=== PATIENT | male | born 1995 | race Hispanic/Latino ===

== ENCOUNTER 2017-11-27 09:54 | Emergency (ER) | payer SELFPAY ==
[~2017-11-27 09:54] MED LIST: IBUP200C76 PO
[2017-11-27] MEDS ORDERED: ACETAMINOPHEN 325 MG TAB ONE (10:21)
== END 2017-11-27 11:20 | disposition home or self-care (01) ==
LOC: EDH 09:54
DX: J10.1 Influenza due to other identified influenza virus with other respiratory manifestations (principal); J45.909 Unspecified asthma, uncomplicated; Z98.890 Other specified postprocedural states
CPT/HCPCS: 71045; 87804; 93005

== ENCOUNTER 2017-12-03 23:29 | Emergency (ER) | payer SELFPAY ==
[2017-12-04] MEDS ORDERED: KETOROLAC TROMETHAMINE 60 MG/2 ML VIAL ONE (00:52)
[2017-12-04] MEDS ORDERED: DEXAMETHASONE SOD PHOSPHATE 10MG/ML 1ML VIAL ONE (00:52)
[2017-12-04] MEDS ORDERED: ACETAMINOPHEN EXTRA STRENGTH 500 MG TABLET ONE (00:53)
== END 2017-12-04 01:48 | disposition home or self-care (01) ==
LOC: EDH 23:29
DX: J10.1 Influenza due to other identified influenza virus with other respiratory manifestations (principal); J45.909 Unspecified asthma, uncomplicated
CPT/HCPCS: 71046; 96372 ×2; 99284; J1100; J1885

== ENCOUNTER 2018-08-17 19:42 | Emergency (ER) | payer OTHER ==
[~2018-08-17 19:42] MED LIST changes: +IBUP-2482 PO; -IBUP200C76 PO
[2018-08-17] MEDS ORDERED: EPINEPHRINE 1 MG/ML AMPULE ONE (19:57)
[2018-08-17] MEDS ORDERED: SODIUM CHLORIDE 0.9% 1000ML 1,000 ML IV ONE (19:59)
[2018-08-17] MEDS ORDERED: DiphenhydrAMINE HCL 50 MG/ML VIAL ONE (19:59)
[2018-08-17] MEDS ORDERED: METHYLPREDNISOLONE SOD SUCC 125MG/2ML VIAL ONE (19:59)
[2018-08-17] MEDS ORDERED: FAMOTIDINE/PF 20 MG/2 ML VIAL IV ONE (20:00)
[2018-08-17 20:42] LABS: BASOPHILS % (AUTO) 0.3 % (0.0-5.0); EOSINOPHILS % (AUTO) 1.6 % (0.0-8.0); HEMATOCRIT 45.5 % (42-54); MEAN CORPUSCULAR HEMOGLOBIN 31.3 pg (27.0-33.0); MEAN CORPUSCULAR HGB CONC 34.4 g/dL (32.0-36.0); MEAN CORPUSCULAR VOLUME 90.9 fL (80-100); MONOCYTES % (AUTO) 9.3 % (3.0-13.0); NEUTROPHILS % (AUTO) 51.8 % (40.0-77.0); PLATELET COUNT (AUTO) 359 K/uL (130-400); RED CELL DISTRIBUTION WIDTH 14.2 % (11.0-15.5)
[2018-08-17 21:02] LABS: CREATININE 1.1 mg/dL (0.5-1.5); POTASSIUM 3.9 mmol/L (3.5-5.1)
== END 2018-08-17 23:03 | disposition home or self-care (01) ==
LOC: EDH 19:42
DX: T78.2XXA Anaphylactic shock, unspecified, initial encounter (principal); T78.40XA Allergy, unspecified, initial encounter; J45.909 Unspecified asthma, uncomplicated; Z98.890 Other specified postprocedural states; X58.XXXA Exposure to other specified factors, initial encounter
CPT/HCPCS: 36415; 80048; 85025; 96372; 96374; 96375; 99285; J0171; J1200; J2930; J3490; J7030